=== PATIENT | female | born 1950 | race Caucasian/White ===

== ENCOUNTER 2018-12-28 07:59 | Observation (INO) | payer MEDICARE, OTHER ==
--- NOTE | 2018-12-28 08:56 | EDM.PDOC ---
ED HPI GENERAL MEDICAL PROBLEM - General Chief Complaint: Genitourinary Problem Stated Complaint: UNABLE TO URINATE Time Seen by Provider: 12/28/18 08:23 Source of Information: Reports: Patient History Limitations: Reports: No Limitations - History of Present Illness INITIAL COMMENTS - FREE TEXT/NARRATIVE: The patient presents with urinary retention. She says for the past week she had trouble urinating. Yesterday in the morning she felt things were getting better but it started again last night and she stopped urinating at 8pm last night. She has lower abdominal distention and pain. She had a couple episodes of severe chills and rigors. She has no temperature here today. She has no chest pain, shortness of breath, nausea or vomiting. She had no dysuria but she did have urgency last week. This has never happened to her before. She has some problems with bowel movements now. Onset: Gradual Duration: Week(s): (1) Location: Reports: Abdomen Quality: Reports: Sharp Severity: Moderate Improves with: Reports: None Worsens with: Reports: None Associated Symptoms: Reports: Fever/Chills. Denies: Chest Pain, Cough, Headaches, Nausea/Vomiting, Shortness of Breath Lower Abdomen Pain Score (Numeric/FACES): 8 - Related Data Allergies Allergy/AdvReac Type Severity Reaction Status Date / Time No Known Allergies Allergy Verified 12/28/18 08:16 Home Meds: Home Meds Ascorbic Acid [Vitamin C] 1,000 mg PO DAILY 09/19/18 [History] Aspirin 81 mg PO DAILY 09/19/18 [History] FA/Lycopene/Lut/MV,Ca,Iron,Min [Centrum] 1 tab PO DAILY 09/19/18 [History] Losartan [Cozaar] 12.5 mg PO DAILY 09/19/18 [History] Metoprolol Tartrate 25 mg PO DAILY 09/19/18 [History] Nitroglycerin [Nitrostat] 0.4 mg SL ASDIRECTED 09/19/18 [History] Rosuvastatin [Crestor] 5 mg PO BEDTIME 09/19/18 [History] Ubidecarenone [Co Q-10] 100 mg PO DAILY 09/19/18 [History] Past Medical History HEENT History: Reports: Cataract Cardiovascular History: Reports: High Cholesterol, Hypertension - Past Surgical History Other Cardiovascular Surgeries/Procedures: Stents Social & Family History - Caffeine Use Caffeine Use: Reports: Coffee ED ROS GENERAL - Review of Systems Review Of Systems: See Below Constitutional: Reports: Chills. Denies: Fever HEENT: Reports: No Symptoms Respiratory: Reports: No Symptoms Cardiovascular: Reports: No Symptoms Endocrine: Reports: No Symptoms GI/Abdominal: Reports: Abdominal Pain. Denies: Diarrhea, Nausea, Vomiting : Reports: Urinary Retention Musculoskeletal: Reports: No Symptoms Skin: Reports: No Symptoms ED EXAM, GI/ABD - Physical Exam Exam: See Below Exam Limited By: No Limitations General Appearance: Alert, No Apparent Distress Ears: Normal External Exam Nose: Normal Inspection Head: Atraumatic, Normocephalic Neck: Normal Inspection, Supple, Non-Tender Respiratory/Chest: No Respiratory Distress, Lungs Clear, Normal Breath Sounds Cardiovascular: Regular Rate, Rhythm, No Edema, No Murmur GI/Abdominal Exam: Distended (Lower abdomen with pain upon palpation) Course - Vital Signs Last Recorded V/S: Last Vital Signs Temp 98.4 F 12/28/18 08:17 Pulse 97 12/28/18 08:17 Resp 12 12/28/18 08:17 BP 157/71 H 12/28/18 08:17 Pulse Ox 95 12/28/18 08:17 - Orders/Labs/Meds Orders: Active Orders 24 hr Category Date Time Status Insert Rao Catheter [Insert Urinary Catheter] [OM.PC] Care 12/28/18 08:45 Ordered Q24H Peripheral IV Care [RC] . DIRECTED Care 12/28/18 09:32 Active Urinary Catheter Assessment [RC] ASDIRECTED Care 12/28/18 08:42 Active CULTURE BLOOD [BC] Stat Lab 12/28/18 10:00 Received CULTURE BLOOD [BC] Stat Lab 12/28/18 10:10 Received CULTURE URINE [RM] Stat Lab 12/28/18 08:45 Received Sodium Chloride 0.9% [Saline Flush] Med 12/28/18 09:32 Active 10 ml FLUSH ASDIRECTED PRN Blood Culture x2 Reflex Set [OM.PC] Stat Oth 12/28/18 09:39 Ordered Peripheral IV Insertion Adult [OM.PC] Routine Oth 12/28/18 09:32 Ordered Medication Orders Sodium Chloride (Saline Flush) 10 ml FLUSH ASDIRECTED PRN PRN Reason: Keep Vein Open Last Admin: 12/28/18 09:37 Dose: 10 ml Labs: Laboratory Tests 12/28/18 12/28/18 12/28/18 Range/Units 08:45 09:05 09:05 WBC 9.86 (3.98-10.04) K/mm3 RBC 4.14 (3.98-5.22) M/mm3 Hgb 12.6 (11.2-15.7) gm/dl Hct 37.2 (34.1-44.9) % MCV 89.9 (79.4-94.8) fl MCH 30.4 (25.6-32.2) pg MCHC 33.9 (32.2-35.5) g/dl RDW Std Deviation 43.0 (36.4-46.3) fL Plt Count 222 (182-369) K/mm3 MPV 9.4 (9.4-12.3) fl Neut % (Auto) 92.0 H (34.0-71.1) % Lymph % (Auto) 5.1 L (19.3-51.7) % [place] % (Auto) 2.3 L (4.7-12.5) % Eos % (Auto) 0.2 L (0.7-5.8) Baso % (Auto) 0.1 (0.1-1.2) % Neut # (Auto) 9.07 H (1.56-6.13) K/mm3 Lymph # (Auto) 0.50 L (1.18-3.74) K/mm3 [place] # (Auto) 0.23 L (0.24-0.36) K/mm3 Eos # (Auto) 0.02 L (0.04-0.36) K/mm3 Baso # (Auto) 0.01 (0.01-0.08) K/mm3 Manual Slide Review Abnormal smear Sodium 138 (136-145) mEq/L Potassium 3.5 (3.5-5.1) mEq/L Chloride 105 (98-107) mEq/L Carbon Dioxide 19 L (21-32) mEq/L Anion Gap 17.5 H (5-15) BUN 29 H (7-18) mg/dL Creatinine 1.6 H (0.55-1.02) mg/dL Est Cr Clr Drug Dosing 28.22 mL/min Estimated GFR (MDRD) 32 (>60) mL/min BUN/Creatinine Ratio 18.1 H (14-18) Glucose 128 H (80-115) mg/dL Lactic Acid (0.4-2.0) mmol/L Calcium 9.8 (8.5-10.1) mg/dL Total Bilirubin 0.7 (0.2-1.0) mg/dL AST 57 H (15-37) U/L ALT 85 H (14-59) U/L Alkaline Phosphatase 195 H (46-116) U/L C-Reactive Protein (<1.0) mg/dL Total Protein 7.5 (6.4-8.2) g/dl Albumin 3.3 L (3.4-5.0) g/dl Globulin 4.2 gm/dL Albumin/Globulin Ratio 0.8 L (1-2) Urine Color Yellow (Yellow) Urine Appearance Cloudy H (Clear) Urine pH 6.0 (5.0-8.0) Ur Specific [place] 1.020 (1.005-1.030) Urine Protein 1+ H (Negative) Urine Glucose (UA) Negative (Negative) Urine Ketones Negative (Negative) Urine Occult Blood 2+ H (Negative) Urine Nitrite Negative (Negative) Urine Bilirubin Negative (Negative) Urine Urobilinogen 0.2 (0.2-1.0) Ur Leukocyte Esterase 3+ H (Negative) Urine RBC 10-20 H (0-5) /hpf Urine WBC 75-100 H (0-5) /hpf Ur Epithelial Cells 0-5 (0-5) /hpf Urine Bacteria Many H (FEW) /hpf Urine Mucus Not seen (FEW) /hpf 12/28/18 12/28/18 Range/Units 09:05 10:10 WBC (3.98-10.04) K/mm3 RBC (3.98-5.22) M/mm3 Hgb (11.2-15.7) gm/dl Hct (34.1-44.9) % MCV (79.4-94.8) fl MCH (25.6-32.2) pg MCHC (32.2-35.5) g/dl RDW Std Deviation (36.4-46.3) fL Plt Count (182-369) K/mm3 MPV (9.4-12.3) fl Neut % (Auto) (34.0-71.1) % Lymph % (Auto) (19.3-51.7) % [place] % (Auto) (4.7-12.5) % Eos % (Auto) (0.7-5.8) Baso % (Auto) (0.1-1.2) % Neut # (Auto) (1.56-6.13) K/mm3 Lymph # (Auto) (1.18-3.74) K/mm3 [place] # (Auto) (0.24-0.36) K/mm3 Eos # (Auto) (0.04-0.36) K/mm3 Baso # (Auto) (0.01-0.08) K/mm3 Manual Slide Review Sodium (136-145) mEq/L Potassium (3.5-5.1) mEq/L Chloride (98-107) mEq/L Carbon Dioxide (21-32) mEq/L Anion Gap (5-15) BUN (7-18) mg/dL Creatinine (0.55-1.02) mg/dL Est Cr Clr Drug Dosing mL/min Estimated GFR (MDRD) (>60) mL/min BUN/Creatinine Ratio (14-18) Glucose (80-115) mg/dL Lactic Acid 1.9 (0.4-2.0) mmol/L Calcium (8.5-10.1) mg/dL Total Bilirubin (0.2-1.0) mg/dL AST (15-37) U/L ALT (14-59) U/L Alkaline Phosphatase (46-116) U/L C-Reactive Protein 12.4 H* (<1.0) mg/dL Total Protein (6.4-8.2) g/dl Albumin (3.4-5.0) g/dl Globulin gm/dL Albumin/Globulin Ratio (1-2) Urine Color (Yellow) Urine Appearance (Clear) Urine pH (5.0-8.0) Ur Specific [place] (1.005-1.030) Urine Protein (Negative) Urine Glucose (UA) (Negative) Urine Ketones (Negative) Urine Occult Blood (Negative) Urine Nitrite (Negative) Urine Bilirubin (Negative) Urine Urobilinogen (0.2-1.0) Ur Leukocyte Esterase (Negative) Urine RBC (0-5) /hpf Urine WBC (0-5) /hpf Ur Epithelial Cells (0-5) /hpf Urine Bacteria (FEW) /hpf Urine Mucus (FEW) /hpf Meds: Medications Generic Name Dose Route Start Last Admin Trade Name Freq PRN Reason Stop Dose Admin Sodium Chloride 10 ml 12/28/18 09:32 12/28/18 09:37 Saline Flush FLUSH 10 ml ASDIRECTED PRN Administration Keep Vein Open Discontinued Medications Generic Name Dose Route Start Last Admin Trade Name Freq PRN Reason Stop Dose Admin Acetaminophen 975 mg 12/28/18 09:33 12/28/18 09:39 Tylenol PO 12/28/18 09:34 975 mg NOW ONE Administration Ceftriaxone Sodium 2 gm/ 100 mls @ 200 mls/hr 12/28/18 09:41 12/28/18 09:46 Sodium Chloride IV 12/28/18 10:10 200 mls/hr ONETIME ONE Administration Sodium Chloride 1,000 mls @ 1,000 mls/hr 12/28/18 10:46 12/28/18 10:55 Normal Saline IV 12/28/18 11:45 1,000 mls/hr ONETIME ONE Administration Lorazepam 0.5 mg 12/28/18 09:26 12/28/18 09:29 Ativan IVPUSH 12/28/18 09:27 0.5 mg ONETIME ONE Administration Lorazepam Confirm 12/28/18 09:27 12/28/18 09:31 Ativan Administered 12/28/18 09:28 Not Given Dose 2 mg .ROUTE .STK-MED ONE Lorazepam 0.5 mg 12/28/18 09:33 12/28/18 09:36 Ativan IVPUSH 12/28/18 09:34 0.5 mg ONETIME ONE Administration - Re-Assessments/Exams Free Text/Narrative Re-Assessment/Exam: 12/28/18 09:31 I did an US and I estimate she has about 1,100mls of urine. I ordered a rao cath, UA and labs. 12/28/18 09:31 I was called into her room. She was having the chills again and severe rigors. She was shaking hard. She was alert through all of this. I ordered an IV saline lock and ativan 0.5mg IV. I will also give her some tylenol. 12/28/18 11:47 Her CBC looks good except she has a predominance of neutrophils. Her anion gap is elevated at 17.5. Her creatinine is elevated at 1.6. Her glucose is elevated at 128. Her lactic acid is normal at 1.9. Her CRP is elevated at 12.4. Her UA does show a UTI. I have ordered a urine culture, blood cultures and rocephin 2 grams IV. She had more of the rigors so I did order more ativan. She is better now. I feel she may have early pyelonephritis. I talked to Dr Fernandez and he agreed to the admission. Departure - Departure Time of Disposition: 11:55 Disposition: Refer to Observation Condition: Fair Clinical Impression: UTI, Urinary tract infectious disease, Urinary retention, Rigors - Discharge Information Referrals: PCP,None [Primary Care Provider] - Forms: ED Department Discharge - My Orders Last 24 Hours: My Active Orders 12/28/18 08:42 Urinary Catheter Assessment [RC] ASDIRECTED 12/28/18 08:45 Insert Rao Catheter [Insert Urinary Catheter] [OM.PC] Q24H CULTURE URINE [RM] Stat 12/28/18 09:32 Peripheral IV Care [RC] . DIRECTED Sodium Chloride 0.9% [Saline Flush] 10 ml FLUSH ASDIRECTED PRN Peripheral IV Insertion Adult [OM.PC] Routine 12/28/18 09:39 Blood Culture x2 Reflex Set [OM.PC] Stat 12/28/18 10:00 CULTURE BLOOD [BC] Stat 12/28/18 10:10 CULTURE BLOOD [BC] Stat - Assessment/Plan Last 24 Hours: My Active Orders 12/28/18 08:42 Urinary Catheter Assessment [RC] ASDIRECTED 12/28/18 08:45 Insert Rao Catheter [Insert Urinary Catheter] [OM.PC] Q24H CULTURE URINE [RM] Stat 12/28/18 09:32 Peripheral IV Care [RC] . DIRECTED Sodium Chloride 0.9% [Saline Flush] 10 ml FLUSH ASDIRECTED PRN Peripheral IV Insertion Adult [OM.PC] Routine 12/28/18 09:39 Blood Culture x2 Reflex Set [OM.PC] Stat 12/28/18 10:00 CULTURE BLOOD [BC] Stat 12/28/18 10:10 CULTURE BLOOD [BC] Stat
[2018-12-28] MEDS ORDERED: LORazepam 2 MG/ML SDV IVPUSH ONE ×2 (09:26→09:33)
[2018-12-28] MEDS ORDERED: LORazepam 2 MG/ML SDV ONE (09:27)
[2018-12-28] MEDS ORDERED: Sodium Chloride 0.9% 10 ML Syringe FLUSH PRN (09:32)
[2018-12-28] MEDS ORDERED: Acetaminophen 325 MG Tab PO ONE (09:33)
[2018-12-28] MEDS ORDERED: cefTRIAXone 2 GM in Sodium Chloride 0.9% 100 ML IV ONE (09:41)
[2018-12-28] MEDS ORDERED: Sodium Chloride 0.9% 1,000 ML IV ONE (10:46)
--- NOTE | 2018-12-28 13:19 | PCM.HP.2 ---
H&P History of Present Illness - General Date of Service: 12/28/18 Admit Problem/Dx: Admission Diagnosis/Problem Admission Diagnosis/Problem UTI, Urinary tract infectious disease - History of Present Illness Initial Comments - Free Text/Narative: With previous history of urinary artery disease with 2 stents following a myocardial infarction in 2012, hypertension, hyperlipidemia presents to the ER with 1 week history of difficulty urinating. Patient states approximately one week ago she had increased urinary frequency and she had to force of stream. Over the last 3-4 days she is only been able to have some dribbling. Starting approximately 8:00 last night she developed fever and chills and lower abdominal pain. She denies any dysuria or hematuria. She had another episode of severe chills this morning and 1 in the ER that was characterized as rigors. Urinary bladder ultrasound was performed and the estimated level 100 mL of urine. Urinary catheter was placed getting out approximate thousand milliliters. UA was positive for infection with 75-100 WBCs, 10-20 RBCs, and many bacteria. White count 9.86 with 9.07 absolute neutrophils, hemoglobin 12.6 , platelets 222, sodium 138, potassium 3.5, carbon dioxide 19, BUN 29, creatinine 1.6. Anion gap was 17.5 and C-reactive protein was 12.4. AST 57, ALT 85, alkaline phosphatase 195, total bilirubin 0.7, lactic acid 1.9, albumin 3.3. Patient was given 2 g IV Rocephin in the emergency room, urine culture and blood cultures drawn, and we felt it was appropriate to admit her to the hospital for observation. Lower Abdomen Pain Score (Numeric/FACES): 8 - Related Data Allergies/Adverse Reactions: Allergies Allergy/AdvReac Type Severity Reaction Status Date / Time No Known Allergies Allergy Verified 12/28/18 08:16 Home Medications: Home Meds Ascorbic Acid [Vitamin C] 500 mg PO DAILY 09/19/18 [History] Aspirin 81 mg PO DAILY 09/19/18 [History] FA/Lycopene/Lut/MV,Ca,Iron,Min [Centrum] 1 tab PO DAILY 09/19/18 [History] Losartan [Cozaar] 12.5 mg PO DAILY 09/19/18 [History] Nitroglycerin [Nitrostat] 0.4 mg SL ASDIRECTED 09/19/18 [History] Rosuvastatin [Crestor] 10 mg PO BEDTIME 09/19/18 [History] Ubidecarenone [Co Q-10] 100 mg PO DAILY 09/19/18 [History] Metoprolol Succinate [Toprol XL] 25 mg PO DAILY 12/28/18 [History] Past Medical History HEENT History: Reports: Cataract Cardiovascular History: Reports: High Cholesterol, Hypertension - Past Surgical History Other Cardiovascular Surgeries/Procedures: Stents Social & Family History - Tobacco Use Smoking Status *Q: Former Smoker Used Tobacco, but Quit: Yes Month/Year Tobacco Last Used: 2008 - Caffeine Use Caffeine Use: Reports: Coffee - Recreational Drug Use Recreational Drug Use: No H&P Review of Systems - Review of Systems: Review Of Systems: ROS reveals no pertinent complaints other than HPI. Exam - Exam Exam: See Below - Vital Signs Vital Signs: Last Vital Signs Temp 98.4 F 12/28/18 08:17 Pulse 97 12/28/18 08:17 Resp 12 12/28/18 08:17 BP 157/71 H 12/28/18 08:17 Pulse Ox 95 12/28/18 08:17 Weight: 150 lb - Exam Quality Assessment: No: Supplemental Oxygen General: Alert, Oriented, 4 HEENT: Conjunctiva Clear, EOMI, Hearing Intact, Mucosa Moist & [place], Nares Patent, Normal Nasal Septum, PERRLA Neck: Supple, Trachea Midline, 2 Lungs: Clear to Auscultation, Normal Respiratory Effort Cardiovascular: Regular Rate, Regular Rhythm GI/Abdominal Exam: Normal Bowel Sounds, Soft, Non-Tender, No Organomegaly, No Distention, No Abnormal Bruit, No Mass, Pelvis Stable Extremities: Normal Inspection, Normal Range of Motion, Non-Tender, No Pedal Edema, Normal Capillary Refill Skin: Warm, Dry, Intact Neurological: Cranial Nerves Intact Neuro Extensive - Mental Status: Alert, Oriented x3 Neuro Extensive - Motor, Sensory, Reflexes: CN II-XII Intact, Normal Gait, Normal Reflexes Psychiatric: Alert, Normal Affect, Normal Mood - Patient Data Lab Results Last 24 hrs: Laboratory Results - last 24 hr 12/28/18 12/28/18 12/28/18 Range/Units 08:45 09:05 09:05 WBC 9.86 (3.98-10.04) K/mm3 RBC 4.14 (3.98-5.22) M/mm3 Hgb 12.6 (11.2-15.7) gm/dl Hct 37.2 (34.1-44.9) % MCV 89.9 (79.4-94.8) fl MCH 30.4 (25.6-32.2) pg MCHC 33.9 (32.2-35.5) g/dl RDW Std Deviation 43.0 (36.4-46.3) fL Plt Count 222 (182-369) K/mm3 MPV 9.4 (9.4-12.3) fl Neut % (Auto) 92.0 H (34.0-71.1) % Lymph % (Auto) 5.1 L (19.3-51.7) % [place] % (Auto) 2.3 L (4.7-12.5) % Eos % (Auto) 0.2 L (0.7-5.8) Baso % (Auto) 0.1 (0.1-1.2) % Neut # (Auto) 9.07 H (1.56-6.13) K/mm3 Lymph # (Auto) 0.50 L (1.18-3.74) K/mm3 [place] # (Auto) 0.23 L (0.24-0.36) K/mm3 Eos # (Auto) 0.02 L (0.04-0.36) K/mm3 Baso # (Auto) 0.01 (0.01-0.08) K/mm3 Manual Slide Review Abnormal smear Sodium 138 (136-145) mEq/L Potassium 3.5 (3.5-5.1) mEq/L Chloride 105 (98-107) mEq/L Carbon Dioxide 19 L (21-32) mEq/L Anion Gap 17.5 H (5-15) BUN 29 H (7-18) mg/dL Creatinine 1.6 H (0.55-1.02) mg/dL Est Cr Clr Drug Dosing 28.22 mL/min Estimated GFR (MDRD) 32 (>60) mL/min BUN/Creatinine Ratio 18.1 H (14-18) Glucose 128 H (80-115) mg/dL Lactic Acid (0.4-2.0) mmol/L Calcium 9.8 (8.5-10.1) mg/dL Total Bilirubin 0.7 (0.2-1.0) mg/dL AST 57 H (15-37) U/L ALT 85 H (14-59) U/L Alkaline Phosphatase 195 H (46-116) U/L C-Reactive Protein (<1.0) mg/dL Total Protein 7.5 (6.4-8.2) g/dl Albumin 3.3 L (3.4-5.0) g/dl Globulin 4.2 gm/dL Albumin/Globulin Ratio 0.8 L (1-2) Urine Color Yellow (Yellow) Urine Appearance Cloudy H (Clear) Urine pH 6.0 (5.0-8.0) Ur Specific [place] 1.020 (1.005-1.030) Urine Protein 1+ H (Negative) Urine Glucose (UA) Negative (Negative) Urine Ketones Negative (Negative) Urine Occult Blood 2+ H (Negative) Urine Nitrite Negative (Negative) Urine Bilirubin Negative (Negative) Urine Urobilinogen 0.2 (0.2-1.0) Ur Leukocyte Esterase 3+ H (Negative) Urine RBC 10-20 H (0-5) /hpf Urine WBC 75-100 H (0-5) /hpf Ur Epithelial Cells 0-5 (0-5) /hpf Urine Bacteria Many H (FEW) /hpf Urine Mucus Not seen (FEW) /hpf 12/28/18 12/28/18 Range/Units 09:05 10:10 WBC (3.98-10.04) K/mm3 RBC (3.98-5.22) M/mm3 Hgb (11.2-15.7) gm/dl Hct (34.1-44.9) % MCV (79.4-94.8) fl MCH (25.6-32.2) pg MCHC (32.2-35.5) g/dl RDW Std Deviation (36.4-46.3) fL Plt Count (182-369) K/mm3 MPV (9.4-12.3) fl Neut % (Auto) (34.0-71.1) % Lymph % (Auto) (19.3-51.7) % [place] % (Auto) (4.7-12.5) % Eos % (Auto) (0.7-5.8) Baso % (Auto) (0.1-1.2) % Neut # (Auto) (1.56-6.13) K/mm3 Lymph # (Auto) (1.18-3.74) K/mm3 [place] # (Auto) (0.24-0.36) K/mm3 Eos # (Auto) (0.04-0.36) K/mm3 Baso # (Auto) (0.01-0.08) K/mm3 Manual Slide Review Sodium (136-145) mEq/L Potassium (3.5-5.1) mEq/L Chloride (98-107) mEq/L Carbon Dioxide (21-32) mEq/L Anion Gap (5-15) BUN (7-18) mg/dL Creatinine (0.55-1.02) mg/dL Est Cr Clr Drug Dosing mL/min Estimated GFR (MDRD) (>60) mL/min BUN/Creatinine Ratio (14-18) Glucose (80-115) mg/dL Lactic Acid 1.9 (0.4-2.0) mmol/L Calcium (8.5-10.1) mg/dL Total Bilirubin (0.2-1.0) mg/dL AST (15-37) U/L ALT (14-59) U/L Alkaline Phosphatase (46-116) U/L C-Reactive Protein 12.4 H* (<1.0) mg/dL Total Protein (6.4-8.2) g/dl Albumin (3.4-5.0) g/dl Globulin gm/dL Albumin/Globulin Ratio (1-2) Urine Color (Yellow) Urine Appearance (Clear) Urine pH (5.0-8.0) Ur Specific [place] (1.005-1.030) Urine Protein (Negative) Urine Glucose (UA) (Negative) Urine Ketones (Negative) Urine Occult Blood (Negative) Urine Nitrite (Negative) Urine Bilirubin (Negative) Urine Urobilinogen (0.2-1.0) Ur Leukocyte Esterase (Negative) Urine RBC (0-5) /hpf Urine WBC (0-5) /hpf Ur Epithelial Cells (0-5) /hpf Urine Bacteria (FEW) /hpf Urine Mucus (FEW) /hpf Result Diagrams: 12/28/18 09:05 12/28/18 09:05 Problem List Initiated/Reviewed/Updated: Yes Orders Last 24hrs: Active Orders 24 hr Category Date Time Status Patient Status [ADT] Routine ADT 12/28/18 12:26 Active Insert [place] Catheter [Insert Urinary Catheter] [OM.PC] Care 12/28/18 08:45 Ordered Q24H Peripheral IV Care [RC] . DIRECTED Care 12/28/18 09:32 Active Urinary Catheter Assessment [RC] ASDIRECTED Care 12/28/18 08:42 Active CULTURE BLOOD [BC] Stat Lab 12/28/18 10:00 Received CULTURE BLOOD [BC] Stat Lab 12/28/18 10:10 Received CULTURE URINE [RM] Stat Lab 12/28/18 08:45 Received Sodium Chloride 0.9% [Saline Flush] Med 12/28/18 09:32 Active 10 ml FLUSH ASDIRECTED PRN Blood Culture x2 Reflex Set [OM.PC] Stat Oth 12/28/18 09:39 Ordered Peripheral IV Insertion Adult [OM.PC] Routine Oth 12/28/18 09:32 Ordered Medication Orders Sodium Chloride (Saline Flush) 10 ml FLUSH ASDIRECTED PRN PRN Reason: Keep Vein Open Last Admin: 12/28/18 09:37 Dose: 10 ml Assessment/Plan Comment:: Assessment * Complicated UTI - Rocephin 2 g given in the emergency room * Urinary retention-urinary catheter placed in the emergency room * Acute renal injury - 1 L normal saline given in the emergency room * Anion gap metabolic acidosis eyes * History of myocardial infarction with 2 stents * History of hypertension and hyperlipidemia Plan * Refer to [facility] for observation status * normal saline at 100 mL an hour * Rocephin 1 g every 24 hours * continue home medications * CBC, CMP, and magnesium in the morning * Follow urine and blood cultures * VTE prophylaxis with enoxaparin * CODE STATUS: Full code * Length of stay 1-2 days - Mortality Measure Prognosis:: Good
[2018-12-28] MEDS ORDERED: Melatonin 3 MG Tab PO PRN (14:39)
[2018-12-28] MEDS ORDERED: Ondansetron 4 MG/2 ML SDV IV PRN (14:39)
[2018-12-28] MEDS ORDERED: Nitroglycerin 0.4 MG Tab.SL SL SCH (14:45)
[2018-12-28] MEDS: Sodium Chloride 0.9% 1,000 ML IV SCH (19:34)
[2018-12-28] MEDS ORDERED: METOPROLOL SUCCINATE 25 MG PO SCH (21:00)
[2018-12-28] MEDS ORDERED: ROSUVASTATIN 10 MG PO SCH (21:00)
[2018-12-29] MEDS: Sodium Chloride 0.9% 1,000 ML IV SCH (04:58)
[2018-12-29] MEDS: Acetaminophen 325 MG Tab PO PRN ×2 (04:58→11:52)
[2018-12-29] MEDS ORDERED: METOPROLOL SUCCINATE 25 MG PO SCH (07:31)
[2018-12-29] MEDS: cefTRIAXone 1 GM in Sodium Chloride 0.9% 100 ML IV SCH (08:58)
[2018-12-29] MEDS ORDERED: LOSARTAN 25 MG PO SCH (09:00)
[2018-12-29] MEDS ORDERED: ROSUVASTATIN 10 MG PO SCH (09:00)
[2018-12-29] MEDS ORDERED: Enoxaparin 30 MG/0.3 ML Syringe SUBCUT SCH (09:00)
[2018-12-29] MEDS ORDERED: Non-Formulary Medication 1 Each (Ubidecarenone 100 MG) PO SCH (09:00)
[2018-12-29] MEDS: Losartan 25 MG Tab**PT OWN PO SCH (09:02)
[2018-12-29] MEDS: Ascorbic Acid 500 MG Tab PO SCH (09:03)
[2018-12-29] MEDS: ROSUVASTATIN 10 MG PO SCH (09:03)
[2018-12-29] MEDS: Aspirin 81 MG Tab.EC PO SCH (09:03)
[2018-12-29] MEDS: Multivitamins,Therapeutic Tab PO SCH (09:03)
[2018-12-29] MEDS ORDERED: Magnesium Sulfate/Water 2 GM in Premix Bag 1 BAG IV ONE (11:15)
--- NOTE | 2018-12-29 11:27 | PCM.PN ---
- General Info Date of Service: 12/29/18 Admission Dx/Problem (Free Text): Admission Diagnosis/Problem Admission Diagnosis/Problem UTI, Urinary tract infectious disease Functional Status: Reports: Pain Controlled, Tolerating Diet, Ambulating, Urinating, Incentive Spirometry. Denies: New Symptoms - Review of Systems General: Reports: No Symptoms. Denies: Fever, Weakness, Fatigue, Malaise, Chills HEENT: Reports: No Symptoms. Denies: Headaches (had one earlier but this has resolved. ), Sore Throat Pulmonary: Reports: No Symptoms. Denies: Shortness of Breath, Pleuritic Chest Pain, Cough, Sputum, Wheezing Cardiovascular: Reports: No Symptoms. Denies: Chest Pain, Palpitations, Dyspnea on Exertion, Edema Gastrointestinal: Reports: Constipation (slight ). Denies: Abdominal Pain, Diarrhea, Nausea, Vomiting Genitourinary: Reports: Pain (improved ), Other (Reports pressure that she attributes to rao cath ). Denies: Dysuria Musculoskeletal: Reports: No Symptoms Skin: Reports: No Symptoms. Denies: Cyanosis Neurological: Reports: No Symptoms. Denies: Confusion, Trouble Speaking, Difficulty Walking Psychiatric: Reports: No Symptoms - Patient Data Vitals - Most Recent: Last Vital Signs Temp 98.2 F 12/29/18 08:57 Pulse 81 12/29/18 08:57 Resp 14 12/29/18 08:57 BP 114/51 L 12/29/18 09:02 Pulse Ox 95 12/29/18 08:57 Weight - Most Recent: 153 lb 4.8 oz I&O - Last 24 Hours: Intake & Output 12/28/18 12/29/18 12/29/18 22:59 06:59 14:59 Intake Total 820 1700 120 Output Total 900 1100 Balance -80 600 120 Lab Results Last 24 Hours: Laboratory Results - last 24 hr 12/29/18 12/29/18 Range/Units 05:32 05:32 WBC 9.99 (3.98-10.04) K/mm3 RBC 3.36 L (3.98-5.22) M/mm3 Hgb 10.5 L D (11.2-15.7) gm/dl Hct 30.4 L (34.1-44.9) % MCV 90.5 (79.4-94.8) fl MCH 31.3 (25.6-32.2) pg MCHC 34.5 (32.2-35.5) g/dl RDW Std Deviation 43.1 (36.4-46.3) fL Plt Count 205 (182-369) K/mm3 MPV 9.9 (9.4-12.3) fl Neut % (Auto) 66.4 (34.0-71.1) % Lymph % (Auto) 18.7 L (19.3-51.7) % [place] % (Auto) 11.8 (4.7-12.5) % Eos % (Auto) 2.9 (0.7-5.8) Baso % (Auto) 0.2 (0.1-1.2) % Neut # (Auto) 6.63 H (1.56-6.13) K/mm3 Lymph # (Auto) 1.87 (1.18-3.74) K/mm3 [place] # (Auto) 1.18 H (0.24-0.36) K/mm3 Eos # (Auto) 0.29 (0.04-0.36) K/mm3 Baso # (Auto) 0.02 (0.01-0.08) K/mm3 Sodium 142 (136-145) mEq/L Potassium 3.5 (3.5-5.1) mEq/L Chloride 111 H (98-107) mEq/L Carbon Dioxide 20 L (21-32) mEq/L Anion Gap 14.5 (5-15) BUN 21 H (7-18) mg/dL Creatinine 0.9 (0.55-1.02) mg/dL Est Cr Clr Drug Dosing 50.18 mL/min Estimated GFR (MDRD) > 60 (>60) mL/min BUN/Creatinine Ratio 23.3 H (14-18) Glucose 124 H (80-115) mg/dL Calcium 8.4 L (8.5-10.1) mg/dL Magnesium 1.6 L (1.8-2.4) mg/dl Total Bilirubin 0.5 (0.2-1.0) mg/dL AST 40 H (15-37) U/L ALT 67 H (14-59) U/L Alkaline Phosphatase 160 H (46-116) U/L C-Reactive Protein 15.7 H* (<1.0) mg/dL Total Protein 6.2 L (6.4-8.2) g/dl Albumin 2.4 L (3.4-5.0) g/dl Globulin 3.8 gm/dL Albumin/Globulin Ratio 0.6 L (1-2) Sina Results Last 24 Hours: Microbiology 12/28/18 08:45 Urine Culture - Preliminary Urine, Catheterized Gram Negative Rods 12/28/18 10:10 Aerobic Blood Culture - Preliminary Blood - Venous - Lab Draw NO GROWTH AFTER 1 DAY Anaerobic Blood Culture - Preliminary NO GROWTH AFTER 1 DAY 12/28/18 10:00 Aerobic Blood Culture - Preliminary Blood - Venous NO GROWTH AFTER 1 DAY Anaerobic Blood Culture - Preliminary NO GROWTH AFTER 1 DAY Med Orders - Current: Current Medications Acetaminophen (Tylenol) 650 mg PO Q4H PRN PRN Reason: Pain (Mild 1-3)/fever Last Admin: 12/29/18 04:58 Dose: 650 mg Ascorbic Acid (Vitamin C) 500 mg PO DAILY [facility] Last Admin: 12/29/18 09:03 Dose: 500 mg Aspirin (Halfprin) 81 mg PO DAILY [facility] Last Admin: 12/29/18 09:03 Dose: 81 mg Enoxaparin Sodium (Lovenox) 30 mg SUBCUT DAILY [facility] Last Admin: 12/29/18 09:04 Dose: 30 mg Ceftriaxone Sodium 1 gm/ (Sodium Chloride) 100 mls @ 200 mls/hr IV Q24H [facility] Last Admin: 12/29/18 08:58 Dose: 200 mls/hr Magnesium Sulfate 2 gm/ Premix 50 mls @ 25 mls/hr IV ONETIME ONE Stop: 12/29/18 13:14 Losartan Potassium (Cozaar) 12.5 mg PO DAILY [facility] Last Admin: 12/29/18 09:02 Dose: 12.5 mg Melatonin (Melatonin) 6 mg PO BEDTIME PRN PRN Reason: Insomnia Last Admin: 12/28/18 21:07 Dose: 6 mg Multivitamins (Thera) 1 each PO DAILY [facility] Last Admin: 12/29/18 09:03 Dose: 1 each Nitroglycerin (Nitrostat) 0.4 mg SL ASDIRECTED [facility] Metoprolol Succinate [Toprol Xl] 25 Mg Pt Own 25 mg PO BEDTIME [facility] Ondansetron HCl (Zofran) 4 mg IV Q4H PRN PRN Reason: Nausea/Vomiting Rosuvastatin Calcium (Crestor) 10 mg PO DAILY [facility] Last Admin: 12/29/18 09:03 Dose: 10 mg Sodium Chloride (Saline Flush) 10 ml FLUSH ASDIRECTED PRN PRN Reason: Keep Vein Open Last Admin: 12/28/18 09:37 Dose: 10 ml Discontinued Medications Acetaminophen (Tylenol) 975 mg PO NOW ONE Stop: 12/28/18 09:34 Last Admin: 12/28/18 09:39 Dose: 975 mg Ceftriaxone Sodium 2 gm/ (Sodium Chloride) 100 mls @ 200 mls/hr IV ONETIME ONE Stop: 12/28/18 10:10 Last Admin: 12/28/18 09:46 Dose: 200 mls/hr Sodium Chloride (Normal Saline) 1,000 mls @ 1,000 mls/hr IV ONETIME ONE Stop: 12/28/18 11:45 Last Admin: 12/28/18 10:55 Dose: 1,000 mls/hr Sodium Chloride (Normal Saline) 1,000 mls @ 100 mls/hr IV ASDIRECTED [facility] Last Admin: 12/29/18 04:58 Dose: 100 mls/hr Influenza Virus Vaccine (Pharmacy To Dose - Influenza Vaccine) 1 each IM ONETIME ONE Stop: 12/28/18 13:42 Influenza Virus Vaccine (Fluzone High-Dose 2018- Syringe) 180 mcg IM .ONCE ONE Stop: 12/28/18 13:46 Lorazepam (Ativan) 0.5 mg IVPUSH ONETIME ONE Stop: 12/28/18 09:27 Last Admin: 12/28/18 09:29 Dose: 0.5 mg Lorazepam (Ativan) Confirm Administered Dose 2 mg .ROUTE .STK-MED ONE Stop: 12/28/18 09:28 Last Admin: 12/28/18 09:31 Dose: Not Given Lorazepam (Ativan) 0.5 mg IVPUSH ONETIME ONE Stop: 12/28/18 09:34 Last Admin: 12/28/18 09:36 Dose: 0.5 mg Metoprolol Succinate [Toprol Xl] 25 Mg Pt Own 25 mg PO BEDTIME [facility] Last Admin: 12/28/18 21:08 Dose: 25 mg Rosuvastatin 10 Mg (Pt Own) 10 mg PO BEDTIME [facility] Non-Formulary Medication (Ubidecarenone) 100 mg PO DAILY [facility] - Exam Quality Assessment: Urine Catheter, DVT Prophylaxis General: Alert, Oriented, Cooperative, No Acute Distress HEENT: Pupils Equal, Pupils Reactive, EOMI, Mucous Membr. Moist/[place] Neck: Supple, Trachea Midline, No JVD Lungs: Clear to Auscultation, Normal Respiratory Effort Cardiovascular: Regular Rate, Regular Rhythm GI/Abdominal Exam: Normal Bowel Sounds, Soft, Non-Tender, No Distention, No Abnormal Bruit (Female) Exam: Deferred Back Exam: Normal Inspection, Full Range of Motion Extremities: Normal Inspection, Normal Range of Motion, Non-Tender, No Pedal Edema, Normal Capillary Refill Peripheral Pulses: 3+: Radial (L), Radial (R), Dorsalis Pedis (L), Dorsalis Pedis (R) Skin: Warm, Dry, Intact Neurological: No New Focal Deficit Psy/Mental Status: Alert, Normal Affect, Normal Mood - Problem List & Annotations (1) Rigors SNOMED Code(s): 40935669 Code(s): R68.89 - OTHER GENERAL SYMPTOMS AND SIGNS Status: Resolved Priority: High Current Visit: Yes (2) UTI, Urinary tract infectious disease SNOMED Code(s): 13708179 Code(s): N39.0 - URINARY TRACT INFECTION, SITE NOT SPECIFIED Status: Acute Priority: High Current Visit: Yes (3) Urinary retention SNOMED Code(s): 256452157 Code(s): R33.9 - RETENTION OF URINE, UNSPECIFIED Status: Acute Priority: High Current Visit: Yes - Problem List Review Problem List Initiated/Reviewed/Updated: Yes - My Orders Last 24 Hours: My Active Orders 12/29/18 11:15 Magnesium Sulfate/Water [Magnesium Sulfate in Water Premix] 2 gm Premix Bag 1 bag IV ONETIME - Plan Plan:: Assessment * Complicated UTI - Rocephin 2 g given in the emergency room * Urinary retention-urinary catheter placed in the emergency room * Acute renal injury - 1 L normal saline given in the emergency room * Anion gap metabolic acidosis - resolved * History of myocardial infarction with 2 stents * History of hypertension and hyperlipidemia Plan * Refer to [facility] for observation status with tele * normal saline at 100 mL an hour - Discontinue * Rocephin 1 g every 24 hours * continue home medications * CBC, CMP, and magnesium in the morning * Follow urine and blood cultures - Negative Blood cultures, Gram negative rods in urine * Remove rao cath in AM * VTE prophylaxis with enoxaparin * Up ad milli * CODE STATUS: Full code * Length of stay: Pending urine cultures
[2018-12-29] MEDS ORDERED: Polyethylene Glycol 3350 Powder 17 GM Packet PO ONE (12:05)
[2018-12-29] MEDS: traMADol 50 MG Tab PO PRN (21:43)
[2018-12-30] MEDS ORDERED: Magnesium Sulfate/Water 4 GM in Premix Bag 1 BAG IV ONE (06:53)
[2018-12-30] MEDS: Potassium Chloride 20 MEQ Tab.ER PO SCH ×2 (07:12→10:35)
[2018-12-30] MEDS: cefTRIAXone 1 GM in Sodium Chloride 0.9% 100 ML IV SCH (08:29)
[2018-12-30] MEDS: traMADol 50 MG Tab PO PRN (08:30)
[2018-12-30] MEDS: Losartan 25 MG Tab**PT OWN PO SCH (08:31)
[2018-12-30] MEDS: ROSUVASTATIN 10 MG PO SCH (08:34)
[2018-12-30] MEDS: Aspirin 81 MG Tab.EC PO SCH (08:35)
[2018-12-30] MEDS: Ascorbic Acid 500 MG Tab PO SCH (08:35)
[2018-12-30] MEDS: Multivitamins,Therapeutic Tab PO SCH (08:36)
[2018-12-30] MEDS ORDERED: Enoxaparin 40 MG/0.4 ML Syringe SUBCUT SCH (09:00)
--- NOTE | 2018-12-30 11:04 | PCM.DCSUM1 ---
<Chirag Aponte - Last Filed: 12/30/18 14:34> Discharge Summary - Hospital Course HPI Initial Comments: With previous history of urinary artery disease with 2 stents following a myocardial infarction in 2012, hypertension, hyperlipidemia presents to the ER with 1 week history of difficulty urinating. Patient states approximately one week ago she had increased urinary frequency and she had to force of stream. Over the last 3-4 days she is only been able to have some dribbling. Starting approximately 8:00 last night she developed fever and chills and lower abdominal pain. She denies any dysuria or hematuria. She had another episode of severe chills this morning and 1 in the ER that was characterized as rigors. Urinary bladder ultrasound was performed and the estimated level 100 mL of urine. Urinary catheter was placed getting out approximate thousand milliliters. UA was positive for infection with 75-100 WBCs, 10-20 RBCs, and many bacteria. White count 9.86 with 9.07 absolute neutrophils, hemoglobin 12.6 , platelets 222, sodium 138, potassium 3.5, carbon dioxide 19, BUN 29, creatinine 1.6. Anion gap was 17.5 and C-reactive protein was 12.4. AST 57, ALT 85, alkaline phosphatase 195, total bilirubin 0.7, lactic acid 1.9, albumin 3.3. Patient was given 2 g IV Rocephin in the emergency room, urine culture and blood cultures drawn, and we felt it was appropriate to admit her to the hospital for observation. Diagnosis: Stroke: No - Discharge Data Discharge Date: 12/30/18 (Admit date: 12/28/18) Discharge Disposition: Home, Self-Care 01 Condition: Good - Referral to Home Health Primary Care Physician: PCP None - Discharge Diagnosis/Problem(s) (1) Rigors SNOMED Code(s): 91796131 ICD Code: R68.89 - OTHER GENERAL SYMPTOMS AND SIGNS Status: Resolved Priority: High Current Visit: Yes (2) UTI, Urinary tract infectious disease SNOMED Code(s): 94402917 ICD Code: N39.0 - URINARY TRACT INFECTION, SITE NOT SPECIFIED Status: Acute Priority: High Current Visit: Yes (3) Urinary retention SNOMED Code(s): 654412968 ICD Code: R33.9 - RETENTION OF URINE, UNSPECIFIED Status: Acute Priority : High Current Visit: Yes (4) Hypomagnesemia SNOMED Code(s): 701966991 ICD Code: E83.42 - HYPOMAGNESEMIA Status: Acute Priority: High Current Visit: Yes (5) Hypokalemia SNOMED Code(s): 83557856 ICD Code: E87.6 - HYPOKALEMIA Status: Acute Priority: High Current Visit: Yes - Patient Summary/Data Labs Pending at D/C: None Recommended Follow-up Testing/Procedures: Follow-up with PCP within 5-7 days of discharge. Recommend recheck BMP, CBC, and magnesium at that time. Follow-up with urology as scheduled. Hospital Course: Sarah was admitted to the floor for UTI and urinary retention. She denied any history of UTIs or urinary retention. A rao catheter was placed in the ED with significant urine output of over 1L. No leukocytosis was noted however CRP was elevated at 12.4. She was started on rocephin and responded well to treatment. No fever or rigors were noted on the floor and she reported she felt much better. Urine grew out berry-sensitive E. Coli. Her magnesium was supplemented, along with her potassium. The rao catheter was removed and she reported she felt great. Unfortunately the urine retention persisted and multiple bladders scans were obtained showing significant urine in the bladder after multiple attempts at urination. A rao catheter was then re-inserted with good output. She was instructed in rao care by nursing and was instructed to follow-up with urology next week and an appointment was made. She was also instructed to follow-up with her PCP within 5-7 days of discharge. She was instructed to return to the ED should symptoms worsen or she notice any gross blood in her urine. She was sent a prescription for 4 days of 500mg keflex with her first dose starting 12/31/18. She was also prescribed daily magnesium supplementation for 4 more days. She was discharged today. - Patient Instructions Diet: Usual Diet as Tolerated Activity: As Tolerated Driving: May Drive Today Showering/Bathing: May Shower Notify Provider of: Fever, Increased Pain, Nausea and/or Vomiting - Discharge Plan *PRESCRIPTION DRUG MONITORING PROGRAM REVIEWED*: No *COPY OF PRESCRIPTION DRUG MONITORING REPORT IN PATIENT HARRISON: No Prescriptions/Med Rec: Cephalexin [Keflex] 500 mg PO QID #16 capsule Magnesium Oxide [Magnesium] 400 mg PO DAILY #4 tablet Home Medications: Home Meds Ascorbic Acid [Vitamin C] 500 mg PO DAILY 09/19/18 [History] Aspirin 81 mg PO DAILY 09/19/18 [History] FA/Lycopene/Lut/MV,Ca,Iron,Min [Centrum] 1 tab PO DAILY 09/19/18 [History] Losartan [Cozaar] 12.5 mg PO DAILY 09/19/18 [History] Nitroglycerin [Nitrostat] 0.4 mg SL ASDIRECTED 09/19/18 [History] Rosuvastatin [Crestor] 10 mg PO BEDTIME 09/19/18 [History] Ubidecarenone [Co Q-10] 100 mg PO DAILY 09/19/18 [History] Metoprolol Succinate [Toprol XL] 25 mg PO DAILY 12/28/18 [History] Cephalexin [Keflex] 500 mg PO QID #16 capsule 12/30/18 [Rx] Magnesium Oxide [Magnesium] 400 mg PO DAILY #4 tablet 12/30/18 [Rx] Oxygen Therapy Mode: Room Air Patient Handouts: Indwelling Urinary Catheter Care, Adult, Acute Urinary Retention, Female, Urinary Tract Infection, Adult Forms: ED Department Discharge Referrals: [facility] [Outside] - 01/07/19 9:30 am (Urologist Nurse Appointment for trial of indwelling rao removal. Appointment is in Central Standard Time. [address] [place], [place].) Elyse Jacob PA-C [Ordering Only Provider] - ([facility] will call you and let you know the apt. time. If they do not call you with in 48 hrs call them and ask about the apt. [facility]-[phone].) John Granados MD [Ordering Only Provider] - 02/03/19 9:30 am (Urology appointment. Appointment is in Central Standard Time. You are on the waiting list for a sooner appointment with this doctor.) - Discharge Summary/Plan Comment DC Time >30 min.: Yes (45 mins ) - General Info Date of Service: 12/30/18 Admission Dx/Problem (Free Text: Admission Diagnosis/Problem Admission Diagnosis/Problem UTI, Urinary tract infectious disease Functional Status: Reports: Pain Controlled, Tolerating Diet, Ambulating, Urinating. Denies: New Symptoms - Review of Systems General: Reports: No Symptoms. Denies: Fever, Weakness, Fatigue, Malaise, Chills HEENT: Reports: No Symptoms. Denies: Headaches, Sore Throat Pulmonary: Reports: No Symptoms. Denies: Shortness of Breath, Pleuritic Chest Pain, Cough, Sputum, Wheezing Cardiovascular: Reports: No Symptoms. Denies: Chest Pain, Palpitations, Dyspnea on Exertion, Edema Gastrointestinal: Reports: No Symptoms. Denies: Abdominal Pain, Constipation, Diarrhea, Nausea, Vomiting Genitourinary: Reports: Retention. Denies: Dysuria, Frequency, Burning, Pain Musculoskeletal: Reports: No Symptoms Skin: Reports: No Symptoms. Denies: Cyanosis Neurological: Reports: No Symptoms. Denies: Confusion Psychiatric: Reports: No Symptoms - Patient Data Vitals - Most Recent: Last Vital Signs Temp 98.8 F 12/29/18 15:57 Pulse 87 12/30/18 03:43 Resp 18 12/30/18 03:43 BP 136/61 12/30/18 08:31 Pulse Ox 96 12/30/18 03:43 Weight - Most Recent: 153 lb 14.4 oz I&O - Last 24 hours: Intake & Output 12/29/18 12/30/18 12/30/18 22:59 06:59 14:59 Intake Total 2025 800 300 Output Total 900 1900 Balance 1125 -1100 300 Lab Results - Last 24 hrs: Laboratory Results - last 24 hr 12/30/18 12/30/18 Range/Units 05:34 05:34 WBC 8.44 (3.98-10.04) K/mm3 RBC 3.39 L (3.98-5.22) M/mm3 Hgb 10.6 L (11.2-15.7) gm/dl Hct 30.2 L (34.1-44.9) % MCV 89.1 (79.4-94.8) fl MCH 31.3 (25.6-32.2) pg MCHC 35.1 (32.2-35.5) g/dl RDW Std Deviation 40.1 (36.4-46.3) fL Plt Count 230 (182-369) K/mm3 MPV 9.5 (9.4-12.3) fl Neut % (Auto) 66.8 (34.0-71.1) % Lymph % (Auto) 20.7 (19.3-51.7) % Barton % (Auto) 9.5 (4.7-12.5) % Eos % (Auto) 2.6 (0.7-5.8) Baso % (Auto) 0.4 (0.1-1.2) % Neut # (Auto) 5.64 (1.56-6.13) K/mm3 Lymph # (Auto) 1.75 (1.18-3.74) K/mm3 Barton # (Auto) 0.80 H (0.24-0.36) K/mm3 Eos # (Auto) 0.22 (0.04-0.36) K/mm3 Baso # (Auto) 0.03 (0.01-0.08) K/mm3 Sodium 139 (136-145) mEq/L Potassium 3.4 L (3.5-5.1) mEq/L Chloride 106 (98-107) mEq/L Carbon Dioxide 22 (21-32) mEq/L Anion Gap 14.4 (5-15) BUN 15 (7-18) mg/dL Creatinine 0.8 (0.55-1.02) mg/dL Est Cr Clr Drug Dosing 56.45 mL/min Estimated GFR (MDRD) > 60 (>60) mL/min BUN/Creatinine Ratio 18.8 H (14-18) Glucose 109 (80-115) mg/dL Calcium 8.3 L (8.5-10.1) mg/dL Magnesium 1.6 L (1.8-2.4) mg/dl Total Bilirubin 0.5 (0.2-1.0) mg/dL AST 65 H (15-37) U/L ALT 91 H (14-59) U/L Alkaline Phosphatase 195 H (46-116) U/L C-Reactive Protein 11.3 H* (<1.0) mg/dL Total Protein 6.4 (6.4-8.2) g/dl Albumin 2.5 L (3.4-5.0) g/dl Globulin 3.9 gm/dL Albumin/Globulin Ratio 0.6 L (1-2) PURVI Results - Last 24 hrs: Microbiology 12/28/18 10:10 Aerobic Blood Culture - Preliminary Blood - Venous - Lab Draw NO GROWTH AFTER 2 DAYS Anaerobic Blood Culture - Preliminary NO GROWTH AFTER 2 DAYS 12/28/18 10:00 Aerobic Blood Culture - Preliminary Blood - Venous NO GROWTH AFTER 2 DAYS Anaerobic Blood Culture - Preliminary NO GROWTH AFTER 2 DAYS 12/28/18 08:45 Urine Culture - Final Urine, Catheterized Escherichia Coli Med Orders - Current: Current Medications Acetaminophen (Tylenol) 650 mg PO Q4H PRN PRN Reason: Pain (Mild 1-3)/fever Last Admin: 12/29/18 11:52 Dose: 650 mg Ascorbic Acid (Vitamin C) 500 mg PO DAILY [facility] Last Admin: 12/30/18 08:35 Dose: 500 mg Aspirin (Halfprin) 81 mg PO DAILY [facility] Last Admin: 12/30/18 08:35 Dose: 81 mg Enoxaparin Sodium (Lovenox) 40 mg SUBCUT DAILY [facility] Last Admin: 12/30/18 08:37 Dose: 40 mg Ceftriaxone Sodium 1 gm/ (Sodium Chloride) 100 mls @ 200 mls/hr IV Q24H [facility] Last Admin: 12/30/18 08:29 Dose: 200 mls/hr Losartan Potassium (Cozaar) 12.5 mg PO DAILY [facility] Last Admin: 12/30/18 08:31 Dose: 12.5 mg Melatonin (Melatonin) 6 mg PO BEDTIME PRN PRN Reason: Insomnia Last Admin: 12/28/18 21:07 Dose: 6 mg Multivitamins (Thera) 1 each PO DAILY [facility] Last Admin: 12/30/18 08:36 Dose: 1 each Nitroglycerin (Nitrostat) 0.4 mg SL ASDIRECTED [facility] Metoprolol Succinate [Toprol Xl] 25 Mg Pt Own 25 mg PO BEDTIME [facility] Last Admin: 12/29/18 21:44 Dose: 25 mg Ondansetron HCl (Zofran) 4 mg IV Q4H PRN PRN Reason: Nausea/Vomiting Rosuvastatin Calcium (Crestor) 10 mg PO DAILY [facility] Last Admin: 12/30/18 08:34 Dose: 10 mg Sodium Chloride (Saline Flush) 10 ml FLUSH ASDIRECTED PRN PRN Reason: Keep Vein Open Last Admin: 12/28/18 09:37 Dose: 10 ml Tramadol HCl (Ultram) 50 mg PO Q6H PRN PRN Reason: Pain Last Admin: 12/30/18 08:30 Dose: 50 mg Discontinued Medications Acetaminophen (Tylenol) 975 mg PO NOW ONE Stop: 12/28/18 09:34 Last Admin: 12/28/18 09:39 Dose: 975 mg Enoxaparin Sodium (Lovenox) 30 mg SUBCUT DAILY [facility] Last Admin: 12/29/18 09:04 Dose: 30 mg Ceftriaxone Sodium 2 gm/ (Sodium Chloride) 100 mls @ 200 mls/hr IV ONETIME ONE Stop: 12/28/18 10:10 Last Admin: 12/28/18 09:46 Dose: 200 mls/hr Sodium Chloride (Normal Saline) 1,000 mls @ 1,000 mls/hr IV ONETIME ONE Stop: 12/28/18 11:45 Last Admin: 12/28/18 10:55 Dose: 1,000 mls/hr Sodium Chloride (Normal Saline) 1,000 mls @ 100 mls/hr IV ASDIRECTED [facility] Last Admin: 12/29/18 04:58 Dose: 100 mls/hr Magnesium Sulfate 2 gm/ Premix 50 mls @ 25 mls/hr IV ONETIME ONE Stop: 12/29/18 13:14 Last Admin: 12/29/18 11:52 Dose: 25 mls/hr Magnesium Sulfate 4 gm/ Premix 50 mls @ 12.5 mls/hr IV ONETIME ONE Stop: 12/30/18 10:52 Last Admin: 12/30/18 07:13 Dose: 12.5 mls/hr Influenza Virus Vaccine (Pharmacy To Dose - Influenza Vaccine) 1 each IM ONETIME ONE Stop: 12/28/18 13:42 Influenza Virus Vaccine (Fluzone High-Dose 2019-20 Syringe) 180 mcg IM .ONCE ONE Stop: 12/28/18 13:46 Lorazepam (Ativan) 0.5 mg IVPUSH ONETIME ONE Stop: 12/28/18 09:27 Last Admin: 12/28/18 09:29 Dose: 0.5 mg Lorazepam (Ativan) Confirm Administered Dose 2 mg .ROUTE .STK-MED ONE Stop: 12/28/18 09:28 Last Admin: 12/28/18 09:31 Dose: Not Given Lorazepam (Ativan) 0.5 mg IVPUSH ONETIME ONE Stop: 12/28/18 09:34 Last Admin: 12/28/18 09:36 Dose: 0.5 mg Metoprolol Succinate [Toprol Xl] 25 Mg Pt Own 25 mg PO BEDTIME [facility] Last Admin: 12/28/18 21:08 Dose: 25 mg Rosuvastatin 10 Mg (Pt Own) 10 mg PO BEDTIME [facility] Non-Formulary Medication (Ubidecarenone) 100 mg PO DAILY [facility] Polyethylene Glycol (Miralax) 17 gm PO ONETIME ONE Stop: 12/29/18 12:06 Last Admin: 12/29/18 13:00 Dose: 17 gm Potassium Chloride (Klor-Con M20) 40 meq PO Q4H [facility] Stop: 12/30/18 11:01 Last Admin: 12/30/18 10:35 Dose: 40 meq - Exam Quality Assessment: Reports: Urine Catheter, DVT Prophylaxis General: Reports: Alert, Oriented, Cooperative, No Acute Distress HEENT: Reports: Pupils Equal, Pupils Reactive, EOMI, Mucous Membr. Moist/[place] Neck: Reports: Supple, Trachea Midline, No JVD Lungs: Reports: Clear to Auscultation, Normal Respiratory Effort Cardiovascular: Reports: Regular Rate, Regular Rhythm GI/Abdominal Exam: Normal Bowel Sounds, Soft, Non-Tender, No Distention, No Abnormal Bruit (Female) Exam: Deferred, Other (Rao in place ) Rectal (Female) Exam: Deferred Back Exam: Reports: Normal Inspection, Full Range of Motion Extremities: Normal Inspection, Normal Range of Motion, Non-Tender, No Pedal Edema, Normal Capillary Refill Skin: Reports: Warm, Dry, Intact Neurological: Reports: No New Focal Deficit Psy/Mental Status: Reports: Alert, Normal Affect, Normal Mood <Carly Fernandez III - Last Filed: 12/30/18 16:42> Discharge Summary - Referral to Home Health Primary Care Physician: PCP None - Discharge Summary/Plan Comment DC Time >30 min.: Yes Discharge Summary/Plan Comment: Patient was seen, examined, and evaluated personally and I agree with the above findings, assessment, and plan. - Patient Data Vitals - Most Recent: Last Vital Signs Temp 98.8 F 12/29/18 15:57 Pulse 87 12/30/18 03:43 Resp 18 12/30/18 03:43 BP 136/61 12/30/18 08:31 Pulse Ox 96 12/30/18 03:43 I&O - Last 24 hours: Intake & Output 12/30/18 12/30/18 12/30/18 06:59 14:59 22:59 Intake Total 800 300 180 Output Total 1900 1150 Balance -1100 -850 180 Lab Results - Last 24 hrs: Laboratory Results - last 24 hr 12/30/18 12/30/18 Range/Units 05:34 05:34 WBC 8.44 (3.98-10.04) K/mm3 RBC 3.39 L (3.98-5.22) M/mm3 Hgb 10.6 L (11.2-15.7) gm/dl Hct 30.2 L (34.1-44.9) % MCV 89.1 (79.4-94.8) fl MCH 31.3 (25.6-32.2) pg MCHC 35.1 (32.2-35.5) g/dl RDW Std Deviation 40.1 (36.4-46.3) fL Plt Count 230 (182-369) K/mm3 MPV 9.5 (9.4-12.3) fl Neut % (Auto) 66.8 (34.0-71.1) % Lymph % (Auto) 20.7 (19.3-51.7) % Barton % (Auto) 9.5 (4.7-12.5) % Eos % (Auto) 2.6 (0.7-5.8) Baso % (Auto) 0.4 (0.1-1.2) % Neut # (Auto) 5.64 (1.56-6.13) K/mm3 Lymph # (Auto) 1.75 (1.18-3.74) K/mm3 Barton # (Auto) 0.80 H (0.24-0.36) K/mm3 Eos # (Auto) 0.22 (0.04-0.36) K/mm3 Baso # (Auto) 0.03 (0.01-0.08) K/mm3 Sodium 139 (136-145) mEq/L Potassium 3.4 L (3.5-5.1) mEq/L Chloride 106 (98-107) mEq/L Carbon Dioxide 22 (21-32) mEq/L Anion Gap 14.4 (5-15) BUN 15 (7-18) mg/dL Creatinine 0.8 (0.55-1.02) mg/dL Est Cr Clr Drug Dosing 56.45 mL/min Estimated GFR (MDRD) > 60 (>60) mL/min BUN/Creatinine Ratio 18.8 H (14-18) Glucose 109 (80-115) mg/dL Calcium 8.3 L (8.5-10.1) mg/dL Magnesium 1.6 L (1.8-2.4) mg/dl Total Bilirubin 0.5 (0.2-1.0) mg/dL AST 65 H (15-37) U/L ALT 91 H (14-59) U/L Alkaline Phosphatase 195 H (46-116) U/L C-Reactive Protein 11.3 H* (<1.0) mg/dL Total Protein 6.4 (6.4-8.2) g/dl Albumin 2.5 L (3.4-5.0) g/dl Globulin 3.9 gm/dL Albumin/Globulin Ratio 0.6 L (1-2) PURVI Results - Last 24 hrs: Microbiology 12/28/18 10:10 Aerobic Blood Culture - Preliminary Blood - Venous - Lab Draw NO GROWTH AFTER 2 DAYS Anaerobic Blood Culture - Preliminary NO GROWTH AFTER 2 DAYS 12/28/18 10:00 Aerobic Blood Culture - Preliminary Blood - Venous NO GROWTH AFTER 2 DAYS Anaerobic Blood Culture - Preliminary NO GROWTH AFTER 2 DAYS 12/28/18 08:45 Urine Culture - Final Urine, Catheterized Escherichia Coli Med Orders - Current: Current Medications Acetaminophen (Tylenol) 650 mg PO Q4H PRN PRN Reason: Pain (Mild 1-3)/fever Last Admin: 12/29/18 11:52 Dose: 650 mg Ascorbic Acid (Vitamin C) 500 mg PO DAILY [facility] Last Admin: 12/30/18 08:35 Dose: 500 mg Aspirin (Halfprin) 81 mg PO DAILY [facility] Last Admin: 12/30/18 08:35 Dose: 81 mg Enoxaparin Sodium (Lovenox) 40 mg SUBCUT DAILY [facility] Last Admin: 12/30/18 08:37 Dose: 40 mg Ceftriaxone Sodium 1 gm/ (Sodium Chloride) 100 mls @ 200 mls/hr IV Q24H [facility] Last Admin: 12/30/18 08:29 Dose: 200 mls/hr Losartan Potassium (Cozaar) 12.5 mg PO DAILY [facility] Last Admin: 12/30/18 08:31 Dose: 12.5 mg Melatonin (Melatonin) 6 mg PO BEDTIME PRN PRN Reason: Insomnia Last Admin: 12/28/18 21:07 Dose: 6 mg Multivitamins (Thera) 1 each PO DAILY [facility] Last Admin: 12/30/18 08:36 Dose: 1 each Nitroglycerin (Nitrostat) 0.4 mg SL ASDIRECTED [facility] Metoprolol Succinate [Toprol Xl] 25 Mg Pt Own 25 mg PO BEDTIME [facility] Last Admin: 12/29/18 21:44 Dose: 25 mg Ondansetron HCl (Zofran) 4 mg IV Q4H PRN PRN Reason: Nausea/Vomiting Rosuvastatin Calcium (Crestor) 10 mg PO DAILY [facility] Last Admin: 12/30/18 08:34 Dose: 10 mg Sodium Chloride (Saline Flush) 10 ml FLUSH ASDIRECTED PRN PRN Reason: Keep Vein Open Last Admin: 12/28/18 09:37 Dose: 10 ml Tramadol HCl (Ultram) 50 mg PO Q6H PRN PRN Reason: Pain Last Admin: 12/30/18 08:30 Dose: 50 mg Discontinued Medications Acetaminophen (Tylenol) 975 mg PO NOW ONE Stop: 12/28/18 09:34 Last Admin: 12/28/18 09:39 Dose: 975 mg Enoxaparin Sodium (Lovenox) 30 mg SUBCUT DAILY [facility] Last Admin: 12/29/18 09:04 Dose: 30 mg Ceftriaxone Sodium 2 gm/ (Sodium Chloride) 100 mls @ 200 mls/hr IV ONETIME ONE Stop: 12/28/18 10:10 Last Admin: 12/28/18 09:46 Dose: 200 mls/hr Sodium Chloride (Normal Saline) 1,000 mls @ 1,000 mls/hr IV ONETIME ONE Stop: 12/28/18 11:45 Last Admin: 12/28/18 10:55 Dose: 1,000 mls/hr Sodium Chloride (Normal Saline) 1,000 mls @ 100 mls/hr IV ASDIRECTED [facility] Last Admin: 12/29/18 04:58 Dose: 100 mls/hr Magnesium Sulfate 2 gm/ Premix 50 mls @ 25 mls/hr IV ONETIME ONE Stop: 12/29/18 13:14 Last Admin: 12/29/18 11:52 Dose: 25 mls/hr Magnesium Sulfate 4 gm/ Premix 50 mls @ 12.5 mls/hr IV ONETIME ONE Stop: 12/30/18 10:52 Last Admin: 12/30/18 07:13 Dose: 12.5 mls/hr Influenza Virus Vaccine (Pharmacy To Dose - Influenza Vaccine) 1 each IM ONETIME ONE Stop: 12/28/18 13:42 Influenza Virus Vaccine (Fluzone High-Dose 2019-20 Syringe) 180 mcg IM .ONCE ONE Stop: 12/28/18 13:46 Lorazepam (Ativan) 0.5 mg IVPUSH ONETIME ONE Stop: 12/28/18 09:27 Last Admin: 12/28/18 09:29 Dose: 0.5 mg Lorazepam (Ativan) Confirm Administered Dose 2 mg .ROUTE .STK-MED ONE Stop: 12/28/18 09:28 Last Admin: 12/28/18 09:31 Dose: Not Given Lorazepam (Ativan) 0.5 mg IVPUSH ONETIME ONE Stop: 12/28/18 09:34 Last Admin: 12/28/18 09:36 Dose: 0.5 mg Metoprolol Succinate [Toprol Xl] 25 Mg Pt Own 25 mg PO BEDTIME [facility] Last Admin: 12/28/18 21:08 Dose: 25 mg Rosuvastatin 10 Mg (Pt Own) 10 mg PO BEDTIME [facility] Non-Formulary Medication (Ubidecarenone) 100 mg PO DAILY [facility] Polyethylene Glycol (Miralax) 17 gm PO ONETIME ONE Stop: 12/29/18 12:06 Last Admin: 12/29/18 13:00 Dose: 17 gm Potassium Chloride (Klor-Con M20) 40 meq PO Q4H [facility] Stop: 12/30/18 11:01 Last Admin: 12/30/18 10:35 Dose: 40 meq
== END 2018-12-30 17:08 | disposition home or self-care (01) ==
LOC: JD.ED 07:59 → JD.OB 12:29 → JD.MS 12:42
PROVIDERS: ADMIT Family Medicine; ATTEND Family Medicine
DX: N39.0 Urinary tract infection, site not specified (principal); R33.9 Retention of urine, unspecified; N17.9 Acute kidney failure, unspecified; E87.2 Acidosis; I10 Essential (primary) hypertension; E78.5 Hyperlipidemia, unspecified; R68.89 Other general symptoms and signs; E83.42 Hypomagnesemia; E87.6 Hypokalemia; Z79.899 Other long term (current) drug therapy; Z79.82 Long term (current) use of aspirin; Z87.891 Personal history of nicotine dependence
CPT/HCPCS: 36415; 51702; 80053; 81001; 83605; 83735; 85025; 86140; 87040; 87086; 87088; 87186; 96361; 96365; 96366; 96367; 96372; 96375; 96376; 99284; A9270; G0378; J0696; J1650; J2060; J3475; J7030; J7040; 99285

== ENCOUNTER 2019-01-04 21:35 | Emergency (ER) | payer MEDICARE, OTHER ==
--- NOTE | 2019-01-04 22:28 | EDM.PDOC ---
ED HPI GENERAL MEDICAL PROBLEM - General Chief Complaint: Genitourinary Problem Stated Complaint: cant urinate Time Seen by Provider: 01/04/19 21:50 Source of Information: Reports: Patient, Family (Daughter) History Limitations: Reports: No Limitations - History of Present Illness INITIAL COMMENTS - FREE TEXT/NARRATIVE: Mrs. Ahumada is a very pleasant 68-year-old woman who is accompanied to the ED by her daughter. Medical records indicate that she was admitted to this hospital on 12/28/2018 after having difficulty urinating. She was found to have pyelonephritis and urinary retention. She was treated with Rocephin, a Warren catheter was placed, her symptoms improved, and she was discharged home on 12/30 with a Warren catheter still in place and a 4 day prescription for Keflex. She was to follow-up with a Urologist. The patient tells me that she developed gross hematuria, therefore she followed up with her PCP this past , 01/01/2019. The Warren catheter was removed, and the patient was instructed on how to self-catheterize, which she has been doing about every 4 hours. The patient states that she was able to self-catheterize without difficulty around 16:00, but when she attempted around 20:00, she was unable to pass the catheter, and started having blood from her urethra. She tried again at 21:00 without success, therefore came to the ED. The patient states that she has been experiencing suprapubic pain ever since , that has not changed. No recent fever, low back, or flank pain. No recent nausea or vomiting. The patient is not on anticoagulant other than a daily baby aspirin. The patient's PCP is GREGG Camacho. The patient's Urologist will be Dr. Kevon Miller. She has an appointment to see him on 01/06/2019. Her Cardiology midlevel is Regla Rodriguez NP. Abdomen Pain Score (Numeric/FACES): 2 - Related Data Allergies Allergy/AdvReac Type Severity Reaction Status Date / Time No Known Allergies Allergy Verified 01/04/19 21:47 Home Meds: Home Meds Ascorbic Acid [Vitamin C] 500 mg PO DAILY 09/19/18 [History] Aspirin 81 mg PO DAILY 09/19/18 [History] FA/Lycopene/Lut/MV,Ca,Iron,Min [Centrum] 1 tab PO DAILY 09/19/18 [History] Losartan [Cozaar] 12.5 mg PO DAILY 09/19/18 [History] Nitroglycerin [Nitrostat] 0.4 mg SL ASDIRECTED 09/19/18 [History] Rosuvastatin [Crestor] 10 mg PO BEDTIME 09/19/18 [History] Ubidecarenone [Co Q-10] 100 mg PO DAILY 09/19/18 [History] Metoprolol Succinate [Toprol XL] 25 mg PO DAILY 12/28/18 [History] Past Medical History Cardiovascular History: Reports: CAD, High Cholesterol, Hypertension, [place] (2012) Genitourinary History: Reports: Retention, Urinary SIEBEL DEVELOPER History: Reports: - Past Surgical History HEENT Surgical History: Reports: Cataract Surgery (bilateral) Cardiovascular Surgical History: Reports: Coronary Artery Stent (x3; 2 in distal RCA, 1 in proximal RCA) Social & Family History - Family History Family Medical History: Noncontributory - Tobacco Use Smoking Status *Q: Former Smoker Years of Tobacco use: 43 Packs/Tins Daily: 1.5 Month/Year Tobacco Last Used: Quit 2008 Second Hand Smoke Exposure: No - Caffeine Use Caffeine Use: Reports: Coffee - Alcohol Use Alcohol Use History: Yes Alcohol Use Frequency: Rarely - Recreational Drug Use Recreational Drug Use: No - Living Situation & Occupation Living situation: Reports: , with Family (Daughter) Occupation: Retired ED ROS GENERAL - Review of Systems Review Of Systems: ROS reveals no pertinent complaints other than HPI. ED EXAM, RENAL/ - Physical Exam Exam: See Below Exam Limited By: No Limitations General Appearance: Alert, WD/WN, No Apparent Distress Eye Exam: Bilateral Eye: EOMI, Other (s/p bilateral cataract surgery) Ears: Normal External Exam, Hearing Grossly Normal Nose: Normal Inspection Throat/Mouth: Normal Inspection, Normal Lips, Normal Voice, No Airway Compromise Head: Atraumatic, Normocephalic Neck: Normal Inspection, Full Range of Motion Respiratory/Chest: No Respiratory Distress, Lungs Clear, Normal Breath Sounds, No Accessory Muscle Use Cardiovascular: Normal Peripheral Pulses, Regular Rate, Rhythm, No Edema, No Gallop, No JVD, No Murmur, No Rub GI/Abdominal: Normal Bowel Sounds, Soft, No Organomegaly, No Distention, No Abnormal Bruit, No Mass, Tender (Suprapubically only. Essentially nontender elsewhere.) (Female) Exam: Deferred Rectal (Female) Exam: Deferred Back Exam: Normal Inspection, Full Range of Motion. No: CVA Tenderness (L), CVA Tenderness (R) Extremities: Normal Inspection, Normal Range of Motion, No Pedal Edema, Normal Capillary Refill Neurological: Alert, Oriented, Normal Cognition, No Motor/Sensory Deficits Psychiatric: Normal Affect Skin Exam: Warm, Dry, Intact, Normal Color, No Rash Course - Vital Signs Last Recorded V/S: Last Vital Signs Temp 36.3 C 01/04/19 21:43 Pulse 73 01/04/19 21:43 Resp 19 01/04/19 21:43 BP 178/78 H 01/04/19 21:43 Pulse Ox 95 01/04/19 21:43 - Orders/Labs/Meds Orders: Active Orders 24 hr Category Date Time Status Warren Catheter Insertion [Insert Urinary Catheter] [OM. Care 01/04/19 22:30 Ordered PC] Q24H Urinary Catheter Assessment [RC] ASDIRECTED Care 01/04/19 22:20 Active CULTURE URINE [RM] Stat Lab 01/04/19 22:30 Received - Re-Assessments/Exams Free Text/Narrative Re-Assessment/Exam: 01/04/19 22:22 The patient appears to have urinary retention associated with blood in the urine. It is possible that the retention is due to a blood clot, however, the patient has some underlying anatomic reason why she has urinary retention, even without a blood clot. For tonight's purposes, a Warren catheter will be placed, with the intention of keeping it in place until she sees the Urologist on Saturday. We will irrigate the patient's bladder if necessary. I will send a sample of urine for culture, but because the patient recently had a Warren catheter and has been straight cathing up until this evening, a urinalysis will be abnormal and uninterpretable. When the patient sees her Urologist on Saturday , his staff can check on the urine culture results. 01/04/19 22:44 Notified by Thao NAYAK that the patient only had 200 mL of urine output when the Warren was placed. Irrigation was not needed. A sample of urine has been sent for culture. I will discharge the patient home. Departure - Departure Time of Disposition: 22:44 Disposition: Home, Self-Care 01 Condition: Good Clinical Impression: Urinary retention, Gross hematuria - Discharge Information *PRESCRIPTION DRUG MONITORING PROGRAM REVIEWED*: Not Applicable *COPY OF PRESCRIPTION DRUG MONITORING REPORT IN PATIENT HARRISON: Not Applicable Instructions: Acute Urinary Retention, Female, Hematuria, Adult Referrals: Elyse Jacob PA-C [Primary Care Provider] - Meghna Rodriguez NP [Ordering Only Provider] - Forms: ED Department Discharge Additional Instructions: You were seen in the emergency room after being unable to urinate and unable to self catheterize, with bloody urine, tonight. A Warren catheter was placed to a leg bag, and a sample of your urine was sent for culture. Continue to maintain the Warren catheter as you have been previously instructed. Make sure that the bag is below the height of your bladder when you sleep, to prevent backflow of urine into your bladder. Follow-up with the Urologist Dr. Kevon Miller at your previously scheduled appointment this coming 01/06/2019. At that appointment, have them check on the urine culture results obtained tonight. If any other problems, please do not hesitate to return to the ER. - My Orders Last 24 Hours: My Active Orders 01/04/19 22:20 Urinary Catheter Assessment [RC] ASDIRECTED 01/04/19 22:30 Warren Catheter Insertion [Insert Urinary Catheter] [OM.PC] Q24H CULTURE URINE [RM] Stat - Assessment/Plan Last 24 Hours: My Active Orders 01/04/19 22:20 Urinary Catheter Assessment [RC] ASDIRECTED 01/04/19 22:30 Warren Catheter Insertion [Insert Urinary Catheter] [OM.PC] Q24H CULTURE URINE [RM] Stat
== END 2019-01-04 23:25 | disposition home or self-care (01) ==
LOC: JD.ED 21:35
DX: R33.9 Retention of urine, unspecified (principal); R31.0 Gross hematuria; I10 Essential (primary) hypertension; I25.2 Old myocardial infarction; I25.10 Atherosclerotic heart disease of native coronary artery without angina pectoris; E78.00 Pure hypercholesterolemia, unspecified; Z79.82 Long term (current) use of aspirin; Z79.899 Other long term (current) drug therapy; Z87.891 Personal history of nicotine dependence
CPT/HCPCS: 51702; 87086; 99283; 99284

== ENCOUNTER 2020-04-07 20:18 | Emergency (ER) | payer MEDICARE, OTHER ==
--- NOTE | 2020-04-07 22:09 | EDM.PDOC ---
ED HPI GENERAL MEDICAL PROBLEM - General Chief Complaint: Genitourinary Problem Stated Complaint: ADMIT SENT FROM [place] Time Seen by Provider: 04/07/20 20:43 Source of Information: Reports: Patient, Family (Daughter) History Limitations: Reports: No Limitations - History of Present Illness INITIAL COMMENTS - FREE TEXT/NARRATIVE: Mrs. Ahumada is a very pleasant 69-year-old woman with past medical history significant for stage IV bladder cancer, initially diagnosed in December 2018, and, based on its histology, thought to be a metastasis from the colon or rectum, however, no colon or rectal tumors have been found, therefore the exact primary cancer is not known. She has been treated with several chemotherapies, however, the cancer is quite aggressive, and has not responded well to treatment thus far. The patient then acquired asymptomatic COVID-19 on 02/16/2020, therefore chemotherapy was discontinued, with her last dose in late January. Presumably due to ureteral compression, the patient had a right ureteral stent placed in January 2019, which has been exchanged every 4 months. A lymph node biopsy was performed on 02/29/2020, a CBC and CMP were drawn on 04/05/2020, and the patient met with her Oncologist yesterday, 04/06/2020, to discuss the results. She complained of pelvic pain and a lot of lower extremity edema. No headaches or dyspnea. She had been treated with spironolactone with no improvement, in fact, she had gained about 25 pounds over the past month, felt due to a combination of hypoalbuminemia as well as enlargement of her pelvic mass obstructing her lymphatic drainage. Her blood work was notable for a H/H of 8.6/26.2, and a BUN/Cr of 32/1.75. There was apparently discussion of starting the patient on a different type of chemotherapy, one ordinarily used to treat breast cancer, however, since it would be off-label, prior approval would be necessary. The patient's daughter tells me that the patient is currently on a fentanyl patch 125 mcg every 3 days, and 1 tablet of Palmer 10/325 every 4 hours. She had previously been on oral Dilaudid, which stopped working well for her. Both the patient and her daughter also indicated that the patient had been on other diuretics in the past, but that nothing was helping with her edema. Other than her pain and edema, the patient also reports a decreased appetite and constipation, but no recent nausea, vomiting, diarrhea, or dysuria. No recent gross hematuria. The patient's daughter spoke with her Oncologist's midlevel today, and the decision was made to have the patient admitted to the hospital for pain control and diuresis. They were directed to come to our ED. Here in the ED, the patient is initially found to be slightly tachycardic at 102 bpm, otherwise, she is hemodynamically stable, afebrile, saturating 95% on room air. The patient's PCP is GREGG Camacho. Her Oncologist is Dr. Bud Vale. Her Urologist is Dr. Charissa Granados. Her Cardiology midlevel is Regla Rodriguez NP. Lower Bladder Pain Score (Numeric/FACES): 10 Hip Pain Score (Numeric/FACES): 10 - Related Data Allergies Allergy/AdvReac Type Severity Reaction Status Date / Time No Known Allergies Allergy Verified 01/04/19 21:47 Home Meds: Home Meds Ascorbic Acid [Vitamin C] 500 mg PO DAILY 09/19/18 [History] Aspirin 81 mg PO DAILY 09/19/18 [History] FA/Lycopene/Lut/MV,Ca,Iron,Min [Centrum] 1 tab PO DAILY 09/19/18 [History] Losartan [Cozaar] 12.5 mg PO DAILY 09/19/18 [History] Nitroglycerin [Nitrostat] 0.4 mg SL ASDIRECTED 09/19/18 [History] Rosuvastatin [Crestor] 10 mg PO BEDTIME 09/19/18 [History] Ubidecarenone [Co Q-10] 100 mg PO DAILY 09/19/18 [History] Metoprolol Succinate [Toprol XL] 25 mg PO DAILY 12/28/18 [History] Past Medical History Cardiovascular History: Reports: CAD, High Cholesterol, Hypertension, [place] (07/01/2012, s/p 3 coronary stents) Psychiatric History: Reports: Anxiety Oncologic (Cancer) History: Reports: Bladder (Stage IV, dx'd Dec 2018, s/p CTx), Breast (right, s/p lumpectomy) - Past Surgical History HEENT Surgical History: Reports: Cataract Surgery (bilateral) Cardiovascular Surgical History: Reports: Coronary Artery Stent (x 3; 2 to distal RCA, 1 to proximal RCA), Vascular Surgery (right Port-A-Cath), Other (See Below) (Coronary angiogram x 1, 07/01/2012) Female Surgical History: Reports: Ureteral Stent (right, initially Jan 2019, s/p exchange Q 4 mos) Oncologic Surgical History: Reports: Lumpectomy (right), Other (See Below) (Fulguration of bladder tumor) Social & Family History - Tobacco Use Tobacco Use Status *Q: Former Tobacco User Years of Tobacco use: 43 Packs/Tins Daily: 1.5 Month/Year Tobacco Last Used: Quit 2008 - Caffeine Use Caffeine Use: Reports: Coffee, Soda, Tea - Alcohol Use Alcohol Use History: Yes Alcohol Use Frequency: Rarely - Recreational Drug Use Recreational Drug Use: No - Living Situation & Occupation Living situation: Reports: , Alone Occupation: Retired ED ROS GENERAL - Review of Systems Review Of Systems: Comprehensive ROS is negative, except as noted in HPI. ED EXAM, GENERAL - Physical Exam Exam: See Below Exam Limited By: No Limitations General Appearance: Alert, No Apparent Distress, Thin Eye Exam: Bilateral Eye: EOMI, Normal Inspection Ears: Normal External Exam, Hearing Loss Nose: Normal Inspection Throat/Mouth: Normal Inspection, Normal Lips, Normal Voice, No Airway Compromise Head: Atraumatic, Normocephalic Neck: Normal Inspection, Full Range of Motion Respiratory/Chest: No Respiratory Distress, Lungs Clear, Normal Breath Sounds, No Accessory Muscle Use Cardiovascular: Normal Peripheral Pulses, Regular Rate, Rhythm, No Gallop, No JVD, No Murmur, No Rub Peripheral Pulses: 3+: Radial (L), Radial (R) GI/Abdominal: Normal Bowel Sounds, Soft, No Organomegaly, No Distention, No Abnormal Bruit, Distended (mild), Tender (generalized, non-focal), Mass (lower abdomen) Extremities: Normal Range of Motion, Normal Capillary Refill, Other (3+ pitting bilaterally) Neurological: Alert, Oriented, Normal Cognition, No Motor/Sensory Deficits Psychiatric: Normal Affect Skin Exam: Warm, Dry, Intact, Normal Color, No Rash Course - Vital Signs Last Recorded V/S: Last Vital Signs Temp 35.9 C L 04/07/20 20:47 Pulse 102 H 04/07/20 20:47 Resp 20 04/07/20 20:47 BP 135/65 04/07/20 20:47 Pulse Ox 95 04/07/20 20:47 - Orders/Labs/Meds Orders: Active Orders 24 hr Category Date Time Status Venous Doppler Lwr Ext Bi [US] Stat Exams 04/07/20 22:04 Taken Labs: Laboratory Tests 04/07/20 04/07/20 04/07/20 Range/Units 22:15 22:25 22:25 WBC 9.14 (3.98-10.04) K/mm3 RBC 2.80 L (3.98-5.22) M/mm3 Hgb 8.4 L D (11.2-15.7) gm/dl Hct 26.2 L (34.1-44.9) % MCV 93.6 D (79.4-94.8) fl MCH 30.0 (25.6-32.2) pg MCHC 32.1 L (32.2-35.5) g/dl RDW Std Deviation 65.6 H (36.4-46.3) fL Plt Count 432 H D (182-369) K/mm3 MPV 8.4 L (9.4-12.3) fl Neutrophils % (Manual) 84 H (40-60) % Band Neutrophils % 0 (0-10) % Lymphocytes % (Manual) 11 L (20-40) % Atypical Lymphs % 0 % Monocytes % (Manual) 5 (2-10) % Eosinophils % (Manual) 0 L (0.7-5.8) % Basophils % (Manual) 0 L (0.1-1.2) Platelet Estimate Increased Anisocytosis 1+ slight RBC Morph Comment Abnormal Sodium 134 L (136-145) mEq/L Potassium 4.5 (3.5-5.1) mEq/L Chloride 100 (98-107) mEq/L Carbon Dioxide 21 (21-32) mEq/L Anion Gap 17.5 H (5-15) BUN 34 H (7-18) mg/dL Creatinine 1.8 H (0.55-1.02) mg/dL Est Cr Clr Drug Dosing 24.74 mL/min Estimated GFR (MDRD) 28 (>60) mL/min BUN/Creatinine Ratio 18.9 H (14-18) Glucose 103 (80-115) mg/dL Calcium 9.6 (8.5-10.1) mg/dL Magnesium 2.1 (1.8-2.4) mg/dl Total Bilirubin 0.3 (0.2-1.0) mg/dL AST 129 H (15-37) U/L ALT 21 (14-59) U/L Alkaline Phosphatase 183 H (46-116) U/L NT-Pro-B Natriuret Pep (0-125) pg/mL Total Protein 6.4 (6.4-8.2) g/dl Albumin 2.0 L (3.4-5.0) g/dl Globulin 4.4 gm/dL Albumin/Globulin Ratio 0.5 L (1-2) Influenza Type A RNA Negative (NEGATIVE) Influenza Type B RNA Negative (NEGATIVE) SARS-CoV-2 RNA ([place]) Positive H (NEGATIVE) 04/07/20 Range/Units 22:25 WBC (3.98-10.04) K/mm3 RBC (3.98-5.22) M/mm3 Hgb (11.2-15.7) gm/dl Hct (34.1-44.9) % MCV (79.4-94.8) fl MCH (25.6-32.2) pg MCHC (32.2-35.5) g/dl RDW Std Deviation (36.4-46.3) fL Plt Count (182-369) K/mm3 MPV (9.4-12.3) fl Neutrophils % (Manual) (40-60) % Band Neutrophils % (0-10) % Lymphocytes % (Manual) (20-40) % Atypical Lymphs % % Monocytes % (Manual) (2-10) % Eosinophils % (Manual) (0.7-5.8) % Basophils % (Manual) (0.1-1.2) Platelet Estimate Anisocytosis RBC Morph Comment Sodium (136-145) mEq/L Potassium (3.5-5.1) mEq/L Chloride (98-107) mEq/L Carbon Dioxide (21-32) mEq/L Anion Gap (5-15) BUN (7-18) mg/dL Creatinine (0.55-1.02) mg/dL Est Cr Clr Drug Dosing mL/min Estimated GFR (MDRD) (>60) mL/min BUN/Creatinine Ratio (14-18) Glucose (80-115) mg/dL Calcium (8.5-10.1) mg/dL Magnesium (1.8-2.4) mg/dl Total Bilirubin (0.2-1.0) mg/dL AST (15-37) U/L ALT (14-59) U/L Alkaline Phosphatase (46-116) U/L NT-Pro-B Natriuret Pep 1021 H (0-125) pg/mL Total Protein (6.4-8.2) g/dl Albumin (3.4-5.0) g/dl Globulin gm/dL Albumin/Globulin Ratio (1-2) Influenza Type A RNA (NEGATIVE) Influenza Type B RNA (NEGATIVE) SARS-CoV-2 RNA ([place]) (NEGATIVE) - Re-Assessments/Exams Free Text/Narrative Re-Assessment/Exam: 04/07/20 22:05 As above, the patient was directed by her Oncologist's midlevel to come to our ED to be admitted for pain control and treatment of her edema. Case discussed with Dr. Fernandez at 21:35. He stated that he was not contacted by Dr. Vale's midlevel, and that this is the first that he has heard of it. He does not see an indication for admission to the hospital, however, he also felt that if the patient did require admission to the hospital, she would be better served being admitted to [facility], since Dr. Vale is on staff there. Case discussed with Arielle at [facility] at 21:48. She spoke to Dr. Ram, Hospitalist at [facility], and notified me at 22:00 that the patient would need a work-up here in the ED before she could accept the patient. I have therefore ordered several blood tests, a Doppler of both lower extremities, as well as a swab for COVID-19/influenza. 04/07/20 23:25 The patient's CBC is remarkable for a H/H depressed at 8.4/26.2, and thrombocytosis of 432,000, with the remainder of her CBC being unremarkable. Her CMP is remarkable for slight hyponatremia of 134, and anion gap slightly elevated at 17.5, but with a bicarbonate normal at 21, and a BUN/Cr elevated at 34/1.8, with the remainder of her CMP being unremarkable. Her magnesium level is within normal limits at 2.1. Her pro-BNP is modestly elevated at 1021. Her swab for COVID-19 has returned positive, while her swab for influenza has returned negative. 04/07/20 23:58 Bilateral lower extremity Doppler ultrasound is read by [facility] as: Bilateral inguinal lymphadenopathy. Nonocclusive thrombus in the left common femoral vein, superficial femoral vein and the proximal greater saphenous vein. 04/08/20 01:33 Case discussed with Arielle at [facility] at 01:00, then again at 01:27 (there was a computer outage at their end). Case then discussed with Dr. Ram at 01:27. Dr. Ram accepted the patient for direct admission to their facility. She asked that we check on the patient's CODE STATUS. 04/08/20 01:41 The above situation was discussed with the patient's daughter. She tells me t hat they have not yet discussed CODE STATUS. She states that her mother does not want heroics to be done, but she does want to continue to fight her cancer. I explained that CODE STATUS really has nothing to do with what is done prior to person clinically dying, and, further, that CPR does not reverse due to cancer or any other problems other than a dysrhythmia following an FL. The patient's daughter seems to understand. She will discuss the situation with her mother. In the meantime, the patient's daughter requested that we transfer the patient to [place] by ground ambulance. Departure - Departure Time of Disposition: 01:42 Disposition: DC/Tfer to Acute Hospital 02 Condition: Fair Clinical Impression: Edema, Cancer related pain, Deep vein thrombosis, lower left extremity, COVID- 19, Chronic renal insufficiency - Discharge Information *PRESCRIPTION DRUG MONITORING PROGRAM REVIEWED*: Not Applicable *COPY OF PRESCRIPTION DRUG MONITORING REPORT IN PATIENT HARRISON: Not Applicable Referrals: Elyse Jacob PA-C [Primary Care Provider] - Bud Vale MD [Ordering Only Provider] - Charissa Granados MD [Ordering Only Provider] - Forms: ED Department Discharge Sepsis Event Note (ED) - Evaluation Sepsis Screening Result: No Definite Risk - Focused Exam Vital Signs: Vital Signs Temp Pulse Resp BP Pulse Ox 04/07/20 20:47 35.9 C L 102 H 20 135/65 95 - My Orders Last 24 Hours: My Active Orders 04/07/20 22:04 Venous Doppler Lwr Ext Bi [US] Stat - Assessment/Plan Last 24 Hours: My Active Orders 04/07/20 22:04 Venous Doppler Lwr Ext Bi [US] Stat
[2020-04-07 23:10] LABS: CORONAVIRUS COVID-19 NAA POSITIVE (NEGATIVE)
[2020-04-08] MEDS ORDERED: Acetaminophen/HYDROcodone 325-10 MG Tab PO ONE (01:41)
--- NOTE | 2020-04-08 09:05 | US ---
Bilateral lower extremity deep venous ultrasound: Duplex and color Doppler evaluation was obtained of the right and left common femoral, proximal greater saphenous, superficial femoral, popliteal, posterior tibial and peroneal veins. Comparison: No prior venous exam is available. Findings: Nonocclusive thrombus is identified within the left common femoral vein and within portions of the superficial femoral vein and proximal greater saphenous vein. Other veins show normal phasic flow, augmentation and compression. Lymphadenopathy is identified within both axillary regions. Impression: 1. Nonobstructing thrombus on the left side as noted above. 2. Bilateral inguinal adenopathy. Diagnostic code #9 I agree with preliminary report from [facility], finalized on 04/08/20, 12:55 AM [employer]
== END 2020-04-08 02:36 ==
LOC: JD.ED 20:18 → SUPCPDRO 20:18 → JD.ED 04-08 02:36
DX: U07.1 COVID-19 (principal); G89.3 Neoplasm related pain (acute) (chronic); C67.9 Malignant neoplasm of bladder, unspecified; I82.412 Acute embolism and thrombosis of left femoral vein; I82.492 Acute embolism and thrombosis of other specified deep vein of left lower extremity; I25.10 Atherosclerotic heart disease of native coronary artery without angina pectoris; E78.00 Pure hypercholesterolemia, unspecified; I12.9 Hypertensive chronic kidney disease with stage 1 through stage 4 chronic kidney disease, or unspecified chronic kidney disease; N18.9 Chronic kidney disease, unspecified; I25.2 Old myocardial infarction; Z87.891 Personal history of nicotine dependence; Z79.82 Long term (current) use of aspirin; Z79.899 Other long term (current) drug therapy
CPT/HCPCS: 0240U; 36415; 80053; 83735; 83880; 85007; 85027; 93970; 99285; A9270